=== PATIENT | female | born 1950 | race Caucasian/White ===

== ENCOUNTER 2020-08-22 13:06 | Emergency (ER) | payer SELFPAY ==
[~2020-08-22] VITALS: Ht 137.2 cm; Wt 96.2 kg
[2020-08-22 13:48] VITALS: Ht 137.2 cm; Wt 96.2 kg
[2020-08-22 17:12] LABS: BASOPHIL % 0.4 % (0.2-1.3); PLATELET COUNT 225 x10^3mcL (179-408)
[2020-08-22 17:15] LABS: RED CELL DISTRIBUTION WIDTH 14.7 % (12.3-17.7)
[2020-08-22 18:34] LABS: CALCIUM 8.8 mg/dL (8.5-10.1); CARBON DIOXIDE 24.4 mmol/L (21-32); CHLORIDE SERUM 101 mmol/L (98-107); CREATININE SERUM 0.8 mg/dL (0.6-1.0); GLUCOSE SERUM 97 mg/dL (74-106); POTASSIUM SERUM 3.5 mmol/L (3.5-5.1); SODIUM SERUM 137 mmol/L (136-145)
[2020-08-22 18:40] LABS: ALBUMIN 3.7 g/dL (3.4-5.0); ALKALINE PHOSPHATASE 55 U/L (46-116); ALT/SGPT 50 U/L (14-59); AST/SGOT 42 U/L (15-37); BILIRUBIN TOTAL 0.5 mg/dL (0.20-1.00)
[2020-08-23 00:34] VITALS: BP 136/86
== END 2020-08-23 00:34 | disposition home or self-care (01) ==
LOC: ED 13:06
PROVIDERS: Student in an Organized Health Care Education/Training Program
DX: U07.1 COVID-19 (principal); J12.89 Other viral pneumonia; I10 Essential (primary) hypertension; R07.89 Other chest pain